=== PATIENT | female | born 1940 | race Caucasian/White ===

== ENCOUNTER 2018-03-11 12:59 | Emergency (ER) | payer MEDICARE, OTHER ==
[~2018-03-11] VITALS: Ht 162.6 cm; Wt 70.8 kg
[~2018-03-11 12:59] MED LIST: LEVO125T7; LOSA100T30
[2018-03-11 14:55] LABS: Basophils # (auto) 0 uL; Basophils % (auto) 0.4 % (0.0-2.0); Eosinophils # (auto) 0.1 uL; Eosinophils % (auto) 0.5 % (0.0-7.0); Hematocrit 39.1 % (36.0-46.0); Hemoglobin 13.1 g/dL (12.2-16.2); Lymphocytes # (auto) 3.4 uL; Mean Corpuscular Hemoglobin 29.5 pg (28.0-32.0); Mean Corpuscular Hgb Conc. 33.5 g/dL (32.0-36.0); Mean Corpuscular Volume 88.1 fL (80.0-100.0); Monocytes # (auto) 0.6 uL; Monocytes % (auto) 5.1 % (0.0-12.0); Neutrophils # (auto) 7.7 uL; Nucleated Red Blood Cells % 0.1 %; Platelet Count (auto) 251 10^3/uL (140-450); Red Blood Cells 4.44 10^6/uL (4.0-5.20); Red Cell Distribution Width 13.9 % (11.8-14.3); White Blood Cell 11.8 10^3/uL (4.4-10.8)
[2018-03-11 15:22] LABS: Alanine Aminotransferase 26 U/L (13-56); Albumin 4.2 g/dL (3.4-5.0); Alkaline Phosphatase 72 U/L (45-117); Anion Gap 12 (5-15); Aspartate Aminotransferase 15 U/L (15-37); BUN/Creatinine Ratio 22.4; Bilirubin, Total 0.4 mg/dL (0.2-1.0); Blood Urea Nitrogen 11 mg/dL (7-18); Carbon Dioxide 25 mmol/L (21-32); Chloride 98 mmol/L (98-107); GFR African American 158 mL/min; GFR Non-African American 131 mL/min; Glucose 102 mg/dL (74-106); Magnesium 2.4 mg/dL (1.6-2.6); Potassium 3.6 mmol/L (3.5-5.1); Sodium 135 mmol/L (136-145); Total Protein 7.9 g/dL (6.4-8.2)
[2018-03-11 17:11] LABS: Urine Bacteria NONE SEEN /hpf (None Seen); Urine Blood Negative /uL (Negative); Urine Mucus FEW (None Seen); Urine Specific Gravity 1.015 (1.001-1.035); Urine WBC 6 /hpf (0 - 5)
[2018-03-11 19:33] VITALS: BP 144/70
== END 2018-03-11 19:49 | disposition home or self-care (01) ==
LOC: MERGE 12:59 → ER 12:59
DX: J44.9 Chronic obstructive pulmonary disease, unspecified (principal); R00.2 Palpitations; E78.5 Hyperlipidemia, unspecified; I10 Essential (primary) hypertension; Z87.442 Personal history of urinary calculi; E07.9 Disorder of thyroid, unspecified
CPT/HCPCS: 36415; 71046; 80053; 81001; 83735; 83880; 84484; 85025; 93005

== ENCOUNTER → 2018-04-11 | Outpatient (CLI) | payer MEDICARE, OTHER ==
[2018-04-11 08:52] LABS: Free T3 2.36 pg/mL (2.3-4.2); Free T4 (Free Thyroxine) 1.07 ng/dL (0.89-1.76)
[2018-04-11 08:53] LABS: T3 Total 0.65 ng/mL (0.60-1.81)
== END | disposition home or self-care (01) ==
LOC: LAB 07:44
PROVIDERS: ATTEND Internal Medicine Cardiovascular Disease
DX: E11.65 Type 2 diabetes mellitus with hyperglycemia (principal); E78.5 Hyperlipidemia, unspecified; R00.2 Palpitations; E03.9 Hypothyroidism, unspecified; R07.89 Other chest pain; I10 Essential (primary) hypertension
CPT/HCPCS: 36415; 84439; 84443; 84480; 84481

== ENCOUNTER → 2018-04-13 | Outpatient (CLI) | payer MEDICARE, OTHER | END | disposition home or self-care (01) | LOC: XYW 08:37 | PROVIDERS: ATTEND Internal Medicine Cardiovascular Disease | DX: I10 Essential (primary) hypertension (principal); E03.9 Hypothyroidism, unspecified; E78.5 Hyperlipidemia, unspecified; J44.9 Chronic obstructive pulmonary disease, unspecified; E11.9 Type 2 diabetes mellitus without complications | CPT/HCPCS: 93306 ==

== ENCOUNTER → 2018-07-01 | Outpatient (CLI) | payer MEDICARE, OTHER ==
[~2018-07-01] MED LIST changes: +ALBUTEROL SULF 2.5 MG/0.5ML(0.5%) NEB SOLN ONE
== END | disposition home or self-care (01) ==
LOC: RT 08:36
PROVIDERS: ATTEND Internal Medicine Pulmonary Disease
DX: J44.9 Chronic obstructive pulmonary disease, unspecified (principal); I10 Essential (primary) hypertension; E03.9 Hypothyroidism, unspecified
CPT/HCPCS: 94060

== ENCOUNTER → 2018-08-15 | Outpatient (CLI) | payer MEDICARE, OTHER ==
[~2018-08-15] MED LIST changes: -ALBUTEROL SULF 2.5 MG/0.5ML(0.5%) NEB SOLN ONE
[2018-08-15 08:25] LABS: Cholesterol 188 mg/dL (< 200)
[2018-08-15 08:29] LABS: HDL Cholesterol 63 mg/dL (40-59); LDL Cholesterol 98 mg/dL (< 100); Triglycerides 206 mg/dL (< 150)
== END | disposition home or self-care (01) ==
LOC: LAB 07:41
PROVIDERS: ATTEND Internal Medicine Cardiovascular Disease
DX: E05.90 Thyrotoxicosis, unspecified without thyrotoxic crisis or storm (principal); E78.5 Hyperlipidemia, unspecified; I10 Essential (primary) hypertension
CPT/HCPCS: 36415; 80061; 84443

== ENCOUNTER → 2019-04-21 | Outpatient (CLI) | payer MEDICARE, OTHER ==
[2019-04-21 08:57] LABS: Basophils # (auto) 0 uL; Basophils % (auto) 0.3 % (0.0-2.0); Eosinophils # (auto) 0.1 uL; Eosinophils % (auto) 1.1 % (0.0-7.0); Hemoglobin 13.4 g/dL (12.2-16.2); Lymphocytes # (auto) 2.8 uL; Lymphocytes % (auto) 32.8 % (10.0-50.0); Mean Corpuscular Hemoglobin 29.4 pg (28.0-32.0); Mean Corpuscular Hgb Conc. 33.4 g/dL (32.0-36.0); Mean Corpuscular Volume 87.8 fL (80.0-100.0); Monocytes # (auto) 0.6 uL; Monocytes % (auto) 6.8 % (0.0-12.0); Nucleated Red Blood Cells % 0.1 %; Platelet Count (auto) 265 10^3/uL (140-450); Red Blood Cells 4.56 10^6/uL (4.0-5.20); Red Cell Distribution Width 13.5 % (11.8-14.3); White Blood Cell 8.4 10^3/uL (4.4-10.8)
[2019-04-21 09:13] LABS: BUN/Creatinine Ratio 24.5; Bilirubin, Total 0.6 mg/dL (0.2-1.0); Calcium 9.4 mg/dL (8.5-10.1); Total Protein 7.7 g/dL (6.4-8.2)
[2019-04-21 09:44] LABS: Potassium 2.9 mmol/L (3.5-5.1)
== END | disposition home or self-care (01) ==
LOC: LAB 08:04
PROVIDERS: ATTEND Physician Assistant
DX: J44.9 Chronic obstructive pulmonary disease, unspecified (principal); E03.9 Hypothyroidism, unspecified; E78.5 Hyperlipidemia, unspecified; I10 Essential (primary) hypertension
CPT/HCPCS: 36415; 80053; 80061; 84443; 85025

== ENCOUNTER → 2019-04-24 | Outpatient (CLI) | payer MEDICARE, OTHER | END | disposition home or self-care (01) | LOC: LAB 10:17 | PROVIDERS: ATTEND Physician Assistant | DX: E78.5 Hyperlipidemia, unspecified (principal); I10 Essential (primary) hypertension; J44.9 Chronic obstructive pulmonary disease, unspecified; E03.9 Hypothyroidism, unspecified | CPT/HCPCS: 82274 ==

== ENCOUNTER → 2019-06-16 | Outpatient (CLI) | payer MEDICARE, OTHER ==
[2019-06-16 12:51] LABS: Potassium 3.6 mmol/L (3.5-5.1)
[2019-06-16 13:03] LABS: BUN/Creatinine Ratio 32.7; Bilirubin, Total 0.7 mg/dL (0.2-1.0); Calcium 9.4 mg/dL (8.5-10.1); Total Protein 8.1 g/dL (6.4-8.2)
== END | disposition home or self-care (01) ==
LOC: LAB 12:04
PROVIDERS: ATTEND Internal Medicine
DX: E78.2 Mixed hyperlipidemia (principal); E11.65 Type 2 diabetes mellitus with hyperglycemia
CPT/HCPCS: 36415; 80053

== ENCOUNTER → 2019-08-09 | Outpatient (CLI) | payer MEDICARE, OTHER ==
[2019-08-09 11:30] LABS: Free T3 2.6 pg/mL (2.3-4.2)
[2019-08-09 11:46] LABS: Free T4 (Free Thyroxine) 1.39 ng/dL (0.89-1.76)
== END | disposition home or self-care (01) ==
LOC: LAB 09:21
PROVIDERS: ATTEND Internal Medicine
DX: E03.9 Hypothyroidism, unspecified (principal)
CPT/HCPCS: 36415; 84439; 84443; 84481

== ENCOUNTER → 2019-09-04 | Outpatient (CLI) | payer MEDICARE, OTHER | END | disposition home or self-care (01) | LOC: LAB 09:48 | PROVIDERS: ATTEND Internal Medicine | DX: Z01.812 Encounter for preprocedural laboratory examination (principal); I10 Essential (primary) hypertension; E78.5 Hyperlipidemia, unspecified; E03.9 Hypothyroidism, unspecified; Z98.890 Other specified postprocedural states; Z87.891 Personal history of nicotine dependence; Z88.6 Allergy status to analgesic agent; Z88.5 Allergy status to narcotic agent; Z88.8 Allergy status to other drugs, medicaments and biological substances; Z87.442 Personal history of urinary calculi | CPT/HCPCS: 36415; 82565; 84520 ==

== ENCOUNTER → 2019-09-25 | Outpatient (CLI) | payer MEDICARE, OTHER ==
[2019-09-25 10:18] LABS: Free T3 3.01 pg/mL (2.3-4.2); Free T4 (Free Thyroxine) 1.22 ng/dL (0.89-1.76); T3 Total 1.04 ng/mL (0.60-1.81)
== END | disposition home or self-care (01) ==
LOC: LAB 08:57
PROVIDERS: ATTEND Internal Medicine
DX: E03.9 Hypothyroidism, unspecified (principal); E11.65 Type 2 diabetes mellitus with hyperglycemia; E78.5 Hyperlipidemia, unspecified; E87.6 Hypokalemia
CPT/HCPCS: 36415; 83036; 84439; 84443; 84480; 84481

== ENCOUNTER 2019-11-04 15:50 | Emergency (ER) | payer MEDICARE, OTHER ==
[~2019-11-04] VITALS: Ht 162.6 cm; Wt 70.3 kg
[2019-11-04 16:03] VITALS: BP 158/73
[2019-11-04] MEDS ORDERED: FLUORESCEIN SOD 1 MG TEST STRIP OP ONE (17:45)
[2019-11-04] MEDS ORDERED: TETRACAINE HCL 0.5% OPTH(EYE) SOLN 4ML LEFTEYE ONE (17:45)
== END 2019-11-04 18:16 | disposition home or self-care (01) ==
LOC: ER 16:03
DX: T15.11XA Foreign body in conjunctival sac, right eye, initial encounter (principal); I10 Essential (primary) hypertension; E78.00 Pure hypercholesterolemia, unspecified; Z87.891 Personal history of nicotine dependence; Z88.5 Allergy status to narcotic agent; Z88.2 Allergy status to sulfonamides; Z88.8 Allergy status to other drugs, medicaments and biological substances; Z79.899 Other long term (current) drug therapy; X58.XXXA Exposure to other specified factors, initial encounter; Y93.89 Activity, other specified; Y92.89 Other specified places as the place of occurrence of the external cause; Y99.8 Other external cause status

== ENCOUNTER → 2019-12-04 | Outpatient (CLI) | payer MEDICARE, OTHER ==
[2019-12-04 09:03] LABS: Urine WBC None Seen /hpf (0 - 5)
[2019-12-04 09:16] LABS: Basophils # (auto) 0 uL; Basophils % (auto) 0.5 % (0.0-2.0); Eosinophils # (auto) 0.1 uL; Eosinophils % (auto) 0.9 % (0.0-7.0); Hematocrit 39.9 % (36.0-46.0); Hemoglobin 13.5 g/dL (12.2-16.2); Lymphocytes # (auto) 2.4 uL; Lymphocytes % (auto) 29.7 % (10.0-50.0); Mean Corpuscular Volume 88.3 fL (80.0-100.0); Monocytes # (auto) 0.4 uL; Monocytes % (auto) 5.3 % (0.0-12.0); Neutrophils # (auto) 5.1 uL; Neutrophils % (auto) 63.6 % (37.0-80.0); Platelet Count (auto) 271 10^3/uL (140-450); Red Blood Cells 4.52 10^6/uL (4.0-5.20)
[2019-12-04 09:24] LABS: Urine Bacteria NONE SEEN /hpf (None Seen); Urine Blood Negative /uL (Negative); Urine Specific Gravity 1.011 (1.001-1.035)
[2019-12-04 09:42] LABS: Calcium 9.2 mg/dL (8.5-10.1); Potassium 3.3 mmol/L (3.5-5.1)
[2019-12-04 09:48] LABS: Bilirubin, Total 0.6 mg/dL (0.2-1.0); Total Protein 7.8 g/dL (6.4-8.2)
[2019-12-04 10:09] LABS: Free T4 (Free Thyroxine) 1.51 ng/dL (0.89-1.76)
[2019-12-04 10:10] LABS: T3 Total 1.02 ng/mL (0.60-1.81)
== END | disposition home or self-care (01) ==
LOC: LAB 08:46
PROVIDERS: ATTEND Physician Assistant
DX: E11.65 Type 2 diabetes mellitus with hyperglycemia (principal); I10 Essential (primary) hypertension; E03.9 Hypothyroidism, unspecified; R79.89 Other specified abnormal findings of blood chemistry
CPT/HCPCS: 36415; 80053; 80061; 81001; 83036; 84439; 84443; 84480; 85025

== ENCOUNTER → 2020-02-26 | Outpatient (CLI) | payer MEDICARE, OTHER ==
[2020-02-26 15:14] LABS: Albumin 4.1 g/dL (3.4-5.0); Calcium 9.6 mg/dL (8.5-10.1); Potassium 3.9 mmol/L (3.5-5.1)
[2020-02-26 15:19] LABS: BUN/Creatinine Ratio 29.6; Bilirubin, Total 0.5 mg/dL (0.2-1.0); Total Protein 8.2 g/dL (6.4-8.2)
== END | disposition home or self-care (01) ==
LOC: LAB 14:12
PROVIDERS: ATTEND Internal Medicine
DX: I10 Essential (primary) hypertension (principal)
CPT/HCPCS: 36415; 80053

== ENCOUNTER → 2020-04-24 | Outpatient (CLI) | payer MEDICARE, OTHER | END | disposition home or self-care (01) | LOC: XYW 08:37 | PROVIDERS: ATTEND Internal Medicine | DX: I07.1 Rheumatic tricuspid insufficiency (principal); I42.9 Cardiomyopathy, unspecified; R07.9 Chest pain, unspecified | CPT/HCPCS: 93306 ==

== ENCOUNTER → 2020-05-07 | Outpatient (CLI) | payer MEDICARE, OTHER ==
[~2020-05-07] VITALS: Ht 162.6 cm; Wt 68.0 kg
[~2020-05-07] MED LIST changes: +ADENOSINE 57 MG in GIVE UN-DILUTED 0 ML IV STA
[2020-05-07 10:14] VITALS: BP 154/55
== END | disposition home or self-care (01) ==
LOC: XY 08:42
PROVIDERS: ATTEND Internal Medicine
DX: R07.9 Chest pain, unspecified (principal)
CPT/HCPCS: 78452; 93017; A9500; J0153

== ENCOUNTER → 2020-11-18 | Outpatient (CLI) | payer MEDICARE, OTHER ==
[~2020-11-18] MED LIST changes: -ADENOSINE 57 MG in GIVE UN-DILUTED 0 ML IV STA
[2020-11-18 16:25] LABS: Basophils # (auto) 0.1 10 ^3/uL (0-0.2); Basophils % (auto) 0.6 % (0.0-2.0); Eosinophils # (auto) 0.1 10 ^3/uL (0-0.8); Eosinophils % (auto) 0.6 % (0.0-7.0); Hematocrit 37.6 % (36.0-46.0); Hemoglobin 12.7 g/dL (12.2-16.2); Lymphocytes # (auto) 3.2 10 ^3/uL (0.4-5.4); Lymphocytes % (auto) 30.9 % (10.0-50.0); Mean Corpuscular Hemoglobin 29.5 pg (28.0-32.0); Mean Corpuscular Hgb Conc. 33.8 g/dL (32.0-36.0); Mean Corpuscular Volume 87.3 fL (80.0-100.0); Monocytes # (auto) 0.5 10 ^3/uL (0-1.3); Monocytes % (auto) 5.2 % (0.0-12.0); Neutrophils # (auto) 6.5 10 ^3/uL (1.6-8.6); Neutrophils % (auto) 62.7 % (37.0-80.0); Platelet Count (auto) 295 10^3/uL (140-450); White Blood Cell 10.3 10^3/uL (4.4-10.8)
[2020-11-18 16:42] LABS: INR 0.99 (0.9-1.15); Partial Thromboplastin Time 25.7 sec (23.0-31.2)
[2020-11-18 16:46] LABS: Albumin 3.9 g/dL (3.4-5.0); Calcium 9.7 mg/dL (8.5-10.1); Potassium 3.6 mmol/L (3.5-5.1)
[2020-11-18 16:51] LABS: BUN/Creatinine Ratio 25.9; Bilirubin, Total 0.3 mg/dL (0.2-1.0); Total Protein 8.2 g/dL (6.4-8.2)
[2020-11-19 10:17] LABS: Urine Blood Negative /uL (Negative); Urine Specific Gravity 1.016 (1.001-1.035)
== END | disposition home or self-care (01) ==
LOC: LAB 15:47
PROVIDERS: ATTEND Specialist
DX: Z01.812 Encounter for preprocedural laboratory examination (principal); H25.11 Age-related nuclear cataract, right eye; D68.9 Coagulation defect, unspecified; Z79.01 Long term (current) use of anticoagulants
CPT/HCPCS: 36415; 80053; 81003; 85025; 85610; 85730

== ENCOUNTER → 2021-05-23 | Outpatient (CLI) | payer MEDICARE, OTHER ==
[2021-05-23 09:35] LABS: Basophils # (auto) 0.1 10 ^3/uL (0-0.2); Basophils % (auto) 0.5 % (0.0-2.0); Eosinophils # (auto) 0.2 10 ^3/uL (0-0.8); Eosinophils % (auto) 1.5 % (0.0-7.0); Hematocrit 35.8 % (36.0-46.0); Hemoglobin 12.7 g/dL (12.2-16.2); Lymphocytes # (auto) 3.4 10 ^3/uL (0.4-5.4); Lymphocytes % (auto) 33.9 % (10.0-50.0); Mean Corpuscular Hemoglobin 30.2 pg (28.0-32.0); Mean Corpuscular Hgb Conc. 35.5 g/dL (32.0-36.0); Mean Corpuscular Volume 85.1 fL (80.0-100.0); Monocytes # (auto) 0.7 10 ^3/uL (0-1.3); Monocytes % (auto) 7.2 % (0.0-12.0); Neutrophils # (auto) 5.8 10 ^3/uL (1.6-8.6); Neutrophils % (auto) 56.9 % (37.0-80.0); Nucleated Red Blood Cells % 0.1 %; Red Cell Distribution Width 13.5 % (11.8-14.3); White Blood Cell 10.1 10^3/uL (4.4-10.8)
[2021-05-23 10:13] LABS: Albumin 3.8 g/dL (3.4-5.0); Calcium 9.3 mg/dL (8.5-10.1); Potassium 3.5 mmol/L (3.5-5.1)
[2021-05-23 10:18] LABS: Bilirubin, Total 0.5 mg/dL (0.2-1.0); Total Protein 7.6 g/dL (6.4-8.2)
== END | disposition home or self-care (01) ==
LOC: LAB 09:15
PROVIDERS: ATTEND Nurse Practitioner Family
DX: I10 Essential (primary) hypertension (principal); E78.5 Hyperlipidemia, unspecified; I42.9 Cardiomyopathy, unspecified; E03.9 Hypothyroidism, unspecified; E11.65 Type 2 diabetes mellitus with hyperglycemia
CPT/HCPCS: 36415; 80053; 80061; 83036; 84443; 85025

== ENCOUNTER 2022-04-01 16:59 | Inpatient (IN) | payer MEDICARE, OTHER ==
[~2022-04-01] VITALS: Ht 162.6 cm; Wt 64.2 kg
[2022-04-01 18:23] LABS: Basophils # (auto) 0 10 ^3/uL (0-0.2); Basophils % (auto) 0.1 % (0.0-2.0); Eosinophils # (auto) 0 10 ^3/uL (0-0.8); Hematocrit 35.4 % (36.0-46.0); Hemoglobin 12.6 g/dL (12.2-16.2); Lymphocytes # (auto) 1.4 10 ^3/uL (0.4-5.4); Lymphocytes % (auto) 8.2 % (10.0-50.0); Mean Corpuscular Hemoglobin 30.1 pg (28.0-32.0); Mean Corpuscular Hgb Conc. 35.5 g/dL (32.0-36.0); Mean Corpuscular Volume 84.7 fL (80.0-100.0); Monocytes # (auto) 0.9 10 ^3/uL (0-1.3); Monocytes % (auto) 5.1 % (0.0-12.0); Neutrophils # (auto) 14.4 10 ^3/uL (1.6-8.6); Neutrophils % (auto) 86.6 % (37.0-80.0); Nucleated Red Blood Cells % 0.1 %; Red Blood Cells 4.18 10^6/uL (4.0-5.20); White Blood Cell 16.7 10^3/uL (4.4-10.8)
[2022-04-01 18:30] LABS: Albumin 3.7 g/dL (3.4-5.0); Magnesium 2.3 mg/dL (1.6-2.6)
[2022-04-01 18:33] LABS: BUN/Creatinine Ratio 28.6; Total Protein 7.2 g/dL (6.4-8.2)
[2022-04-01 18:34] LABS: Lactic Acid w/Reflex 2.4 mmol/L (0.4-2.0)
[2022-04-01 18:59] LABS: Potassium 2.8 mmol/L (3.5-5.1)
[2022-04-01] MEDS ORDERED: SODIUM CHLORIDE 0.9% 1,000 ML IV ONE (19:00)
[2022-04-01] MEDS ORDERED: cefTRIAXone 1GM/50ML D5W 50 ML IV ONE (19:00)
[2022-04-01] MEDS ORDERED: POTASSIUM CHL 20 Meq TABLET PO ONE (21:15)
[2022-04-01] MEDS ORDERED: ONDANSETRON HCL 4 MG/2 ML VIAL IV PRN (21:30)
[2022-04-01] MEDS: ATORVASTATIN 20 MG TAB PO SCH (22:33)
[2022-04-02 04:38] VITALS: BP 127/58
[2022-04-02 05:24] LABS: Basophils # (auto) 0 10 ^3/uL (0-0.2); Basophils % (auto) 0.2 % (0.0-2.0); Eosinophils # (auto) 0.1 10 ^3/uL (0-0.8); Eosinophils % (auto) 0.5 % (0.0-7.0); Hematocrit 32.3 % (36.0-46.0); Hemoglobin 11.2 g/dL (12.2-16.2); Lymphocytes # (auto) 2.4 10 ^3/uL (0.4-5.4); Lymphocytes % (auto) 21.6 % (10.0-50.0); Mean Corpuscular Hemoglobin 29.8 pg (28.0-32.0); Mean Corpuscular Hgb Conc. 34.5 g/dL (32.0-36.0); Mean Corpuscular Volume 86.4 fL (80.0-100.0); Monocytes # (auto) 0.8 10 ^3/uL (0-1.3); Monocytes % (auto) 7.3 % (0.0-12.0); Neutrophils # (auto) 7.9 10 ^3/uL (1.6-8.6); Neutrophils % (auto) 70.4 % (37.0-80.0); Nucleated Red Blood Cells % 0.1 %; Red Blood Cells 3.74 10^6/uL (4.0-5.20); Red Cell Distribution Width 12.8 % (11.8-14.3); White Blood Cell 11.2 10^3/uL (4.4-10.8)
[2022-04-02 05:39] LABS: Albumin 3.4 g/dL (3.4-5.0); BUN/Creatinine Ratio 29.3; Calcium 8.8 mg/dL (8.5-10.1); Potassium 3.5 mmol/L (3.5-5.1)
[2022-04-02 05:45] LABS: Bilirubin, Total 0.7 mg/dL (0.2-1.0); Total Protein 6.2 g/dL (6.4-8.2)
[2022-04-02] MEDS: LEVOTHYROXINE SODIUM 50 MCG TAB PO SCH (06:42)
[2022-04-02 09:30] VITALS: BP 137/57
[2022-04-02] MEDS: PANTOPRAZOLE 40 MG TAB PO SCH (09:31)
[2022-04-02] MEDS: cefTRIAXone 1GM/50ML D5W 50 ML IV SCH (09:31)
[2022-04-02] MEDS ORDERED: ENOXAPARIN SOD 40 MG/0.4 ML SYRINGE SC SCH (10:00)
[2022-04-02] MEDS: SODIUM CHLORIDE 0.9% 1,000 ML IV SCH (10:15)
[2022-04-02] MEDS ORDERED: POTASSIUM CHL 20 Meq TABLET PO ONE (14:15)
[2022-04-02] MEDS ORDERED: AMIODARONE HCL 200 MG TAB PO ONE (14:15)
[2022-04-02] MEDS ORDERED: METOPROLOL TARTRATE 25 MG TAB PO ONE (14:15)
[2022-04-02 19:05] LABS: Urine Bacteria NONE SEEN /hpf (None Seen); Urine Blood Negative /uL (Negative); Urine WBC 10 /hpf (0 - 5)
[2022-04-02 22:03] VITALS: BP 152/70
[2022-04-02] MEDS: METOPROLOL TARTRATE 25 MG TAB PO SCH (22:45)
[2022-04-02] MEDS: ENOXAPARIN SOD 60 MG/0.6 ML SYRINGE SC SCH (22:45)
[2022-04-02] MEDS: ATORVASTATIN 20 MG TAB PO SCH (22:45)
[2022-04-02] MEDS: AMIODARONE HCL 200 MG TAB PO SCH (22:45)
[2022-04-03] MEDS: SODIUM CHLORIDE 0.9% 1,000 ML IV SCH ×2 (03:24→22:17)
[2022-04-03 05:16] VITALS: BP 142/79
[2022-04-03] MEDS: LEVOTHYROXINE SODIUM 50 MCG TAB PO SCH (07:47)
[2022-04-03 09:00] VITALS: BP 133/76
[2022-04-03] MEDS: cefTRIAXone 1GM/50ML D5W 50 ML IV SCH (09:50)
[2022-04-03] MEDS: PANTOPRAZOLE 40 MG TAB PO SCH (09:51)
[2022-04-03] MEDS: AMIODARONE HCL 200 MG TAB PO SCH ×2 (09:51→22:14)
[2022-04-03] MEDS: METOPROLOL TARTRATE 25 MG TAB PO SCH ×2 (09:51→22:12)
[2022-04-03] MEDS: ENOXAPARIN SOD 60 MG/0.6 ML SYRINGE SC SCH ×2 (09:52→22:11)
[2022-04-03 13:00] VITALS: BP 146/75
[2022-04-03 17:00] VITALS: BP 138/68
[2022-04-03 22:00] VITALS: BP 137/74
[2022-04-03] MEDS: ATORVASTATIN 20 MG TAB PO SCH (22:11)
[2022-04-04] MEDS ORDERED: TEMAZEPAM 15 MG CAP PO ONE ×2 (01:30→21:45)
[2022-04-04 05:12] VITALS: BP 92/48
[2022-04-04] MEDS: LEVOTHYROXINE SODIUM 50 MCG TAB PO SCH (06:14)
[2022-04-04 06:16] VITALS: BP 121/66
[2022-04-04 08:00] VITALS: BP 124/73
[2022-04-04] MEDS: cefTRIAXone 1GM/50ML D5W 50 ML IV SCH (11:19)
[2022-04-04] MEDS: PANTOPRAZOLE 40 MG TAB PO SCH (11:20)
[2022-04-04] MEDS: AMIODARONE HCL 200 MG TAB PO SCH ×2 (11:20→21:28)
[2022-04-04] MEDS: METOPROLOL TARTRATE 25 MG TAB PO SCH ×2 (11:20→21:27)
[2022-04-04] MEDS: ENOXAPARIN SOD 60 MG/0.6 ML SYRINGE SC SCH (11:21)
[2022-04-04 12:00] VITALS: BP 135/68
[2022-04-04] MEDS ORDERED: APIX5TAB PO (12:06)
[2022-04-04] MEDS ORDERED: AMIO200T33 PO (12:08)
[2022-04-04] MEDS ORDERED: MET25T PO (12:08)
[2022-04-04 12:57] LABS: Basophils # (auto) 0.2 10 ^3/uL (0-0.2); Basophils % (auto) 1.5 % (0.0-2.0); Eosinophils # (auto) 0.1 10 ^3/uL (0-0.8); Eosinophils % (auto) 0.9 % (0.0-7.0); Hematocrit 35.3 % (36.0-46.0); Hemoglobin 12.2 g/dL (12.2-16.2); Lymphocytes # (auto) 2.7 10 ^3/uL (0.4-5.4); Lymphocytes % (auto) 25.1 % (10.0-50.0); Mean Corpuscular Hemoglobin 30.1 pg (28.0-32.0); Mean Corpuscular Hgb Conc. 34.6 g/dL (32.0-36.0); Monocytes # (auto) 0.6 10 ^3/uL (0-1.3); Monocytes % (auto) 5.7 % (0.0-12.0); Neutrophils # (auto) 7.1 10 ^3/uL (1.6-8.6); Neutrophils % (auto) 66.8 % (37.0-80.0); Nucleated Red Blood Cells % 0.1 %; Red Blood Cells 4.06 10^6/uL (4.0-5.20); White Blood Cell 10.6 10^3/uL (4.4-10.8)
[2022-04-04 13:09] LABS: BUN/Creatinine Ratio 12.3; Calcium 8.6 mg/dL (8.5-10.1)
[2022-04-04 16:00] VITALS: BP 126/55
[2022-04-04] MEDS: APIXABAN 5 MG TAB PO SCH (21:26)
[2022-04-04] MEDS: ATORVASTATIN 20 MG TAB PO SCH (21:27)
[2022-04-04 22:00] VITALS: BP 124/85
[2022-04-05 05:00] VITALS: BP 110/65
[2022-04-05] MEDS: LEVOTHYROXINE SODIUM 50 MCG TAB PO SCH (06:46)
[2022-04-05 08:00] VITALS: BP 129/56
[2022-04-05] MEDS: cefTRIAXone 1GM/50ML D5W 50 ML IV SCH (09:36)
[2022-04-05] MEDS: AMIODARONE HCL 200 MG TAB PO SCH ×2 (09:37→22:33)
[2022-04-05] MEDS: APIXABAN 5 MG TAB PO SCH ×2 (09:37→22:34)
[2022-04-05] MEDS: METOPROLOL TARTRATE 25 MG TAB PO SCH ×2 (09:38→22:34)
[2022-04-05] MEDS: PANTOPRAZOLE 40 MG TAB PO SCH (09:38)
[2022-04-05 12:00] VITALS: BP 132/66
[2022-04-05 16:00] VITALS: BP 142/72
[2022-04-05 22:00] VITALS: BP 143/84
[2022-04-05] MEDS ORDERED: TEMAZEPAM 15 MG CAP PO PRN (22:00)
[2022-04-05] MEDS: ATORVASTATIN 20 MG TAB PO SCH (22:32)
[2022-04-06 04:00] VITALS: BP 118/60
[2022-04-06] MEDS: LEVOTHYROXINE SODIUM 50 MCG TAB PO SCH (06:39)
[2022-04-06 09:00] VITALS: BP 157/82
[2022-04-06] MEDS: cefTRIAXone 1GM/50ML D5W 50 ML IV SCH (09:05)
[2022-04-06] MEDS: PANTOPRAZOLE 40 MG TAB PO SCH (09:06)
[2022-04-06] MEDS: AMIODARONE HCL 200 MG TAB PO SCH (09:06)
[2022-04-06] MEDS: APIXABAN 5 MG TAB PO SCH (09:06)
[2022-04-06] MEDS: METOPROLOL TARTRATE 25 MG TAB PO SCH (09:10)
[2022-04-06 13:00] VITALS: BP 157/79
[2022-04-06 17:00] VITALS: BP 143/74
== END 2022-04-06 19:04 | DRG 641 ==
LOC: ER 16:59 → EDUNIT# 16:59 → EDBD 16:59 → OVERFLOW 21:23 → WEST WING 23:38 → TELE-WESTW 04-02 22:00
PROVIDERS: ADMIT Nurse Practitioner; ATTEND Internal Medicine Pulmonary Disease
DX: R62.7 Adult failure to thrive (principal); E87.1 Hypo-osmolality and hyponatremia; M62.82 Rhabdomyolysis; R65.10 Systemic inflammatory response syndrome (SIRS) of non-infectious origin without acute organ dysfunction; E87.2 Acidosis; N39.0 Urinary tract infection, site not specified; G20 Parkinson's disease; Z68.23 Body mass index [BMI] 23.0-23.9, adult; I48.0 Paroxysmal atrial fibrillation; E86.0 Dehydration; E11.42 Type 2 diabetes mellitus with diabetic polyneuropathy; R79.89 Other specified abnormal findings of blood chemistry; Z20.822 Contact with and (suspected) exposure to COVID-19; E03.9 Hypothyroidism, unspecified; D72.829 Elevated white blood cell count, unspecified; S40.022A Contusion of left upper arm, initial encounter; W18.39XA Other fall on same level, initial encounter; E78.5 Hyperlipidemia, unspecified; E87.6 Hypokalemia; I10 Essential (primary) hypertension; Z82.49 Family history of ischemic heart disease and other diseases of the circulatory system; Z87.442 Personal history of urinary calculi; Z87.891 Personal history of nicotine dependence; Z88.1 Allergy status to other antibiotic agents; Z88.5 Allergy status to narcotic agent; Z88.2 Allergy status to sulfonamides; Y93.89 Activity, other specified; Y92.89 Other specified places as the place of occurrence of the external cause; Y99.8 Other external cause status
CPT/HCPCS: 36415; 70450; 71045; 72125; 73030; 73070; 73200; 80048; 80053; 81001; 82550; 83036; 83605; 83735; 84443; 84484; 85025; 87040; 87086; 93005; 93306; 96365; 97116; 97163; 97530; 99291; G0378; J0696

== ENCOUNTER 2023-04-14 01:04 | Emergency (ER) | payer MEDICARE, OTHER ==
[~2023-04-14] VITALS: Ht 160 cm; Wt 64.0 kg
[~2023-04-14 01:04] MED LIST changes: +AMIO200T33 PO; +APIX5TAB PO; -LOSA100T30; +MET25T PO
[2023-04-14] MEDS ORDERED: PRED10TA PO (03:40)
[2023-04-14] MEDS ORDERED: cefTRIAXone SOD 1,000 MG VL IM ONE (03:45)
[2023-04-14] MEDS ORDERED: methylPREDNISolone SOD SUCC 125 MG/2 ML VL IV ONE (03:45)
[2023-04-14] MEDS ORDERED: TETANUS-DIPTH-ACEL PERTUSSIS 0.5ML SYR Tdap IM ONE (04:15)
[2023-04-14] MEDS ORDERED: SODIUM CHLORIDE 0.9% 1,000 ML IV ONE (04:15)
[2023-04-14] MEDS ORDERED: cefTRIAXone 1GM/50ML D5W 50 ML IV ONE (04:45)
[2023-04-14 05:01] VITALS: BP 115/46
== END 2023-04-14 05:20 | disposition home or self-care (01) ==
LOC: ER 01:04
DX: S40.861A Insect bite (nonvenomous) of right upper arm, initial encounter (principal); S80.862A Insect bite (nonvenomous), left lower leg, initial encounter; S80.861A Insect bite (nonvenomous), right lower leg, initial encounter; I48.91 Unspecified atrial fibrillation; E78.5 Hyperlipidemia, unspecified; I10 Essential (primary) hypertension; Z88.6 Allergy status to analgesic agent; Z88.2 Allergy status to sulfonamides; Z88.8 Allergy status to other drugs, medicaments and biological substances; Z79.899 Other long term (current) drug therapy; Z87.442 Personal history of urinary calculi; W57.XXXA Bitten or stung by nonvenomous insect and other nonvenomous arthropods, initial encounter; Y93.89 Activity, other specified; Y92.89 Other specified places as the place of occurrence of the external cause; Y99.8 Other external cause status
CPT/HCPCS: 90471; 90715; 96361; 96365; 96375; 99284; J0696; J2930; J7030

== ENCOUNTER 2023-06-06 14:42 | Inpatient (IN) | payer MEDICARE, OTHER ==
[~2023-06-06] VITALS: Ht 167.6 cm; Wt 68.5 kg
[~2023-06-06 14:42] MED LIST changes: +PRED10TA PO
[2023-06-06] MEDS ORDERED: HYDROmorphone HCL 2 MG/ML VL/or syr IV ONE (15:30)
[2023-06-06] MEDS ORDERED: METOCLOPRAMIDE HCL 5MG/ml INJ 2ml VIAL IV ONE (15:30)
[2023-06-06] MEDS ORDERED: SODIUM CHLORIDE 0.9% 1,000 ML IV ONE (19:30)
[2023-06-06 20:06] LABS: Basophils # (auto) 0 10 ^3/uL (0-0.2); Basophils % (auto) 0.2 % (0.0-2.0); Eosinophils # (auto) 0.1 10 ^3/uL (0-0.8); Eosinophils % (auto) 0.7 % (0.0-7.0); Hematocrit 35.8 % (36.0-46.0); Hemoglobin 12.6 g/dL (12.2-16.2); Lymphocytes # (auto) 1.9 10 ^3/uL (0.4-5.4); Lymphocytes % (auto) 14.1 % (10.0-50.0); Mean Corpuscular Hgb Conc. 35.2 g/dL (32.0-36.0); Mean Corpuscular Volume 85.2 fL (80.0-100.0); Monocytes # (auto) 0.8 10 ^3/uL (0-1.3); Monocytes % (auto) 6.2 % (0.0-12.0); Neutrophils # (auto) 10.4 10 ^3/uL (1.6-8.6); Neutrophils % (auto) 78.8 % (37.0-80.0); Red Blood Cells 4.21 10^6/uL (4.0-5.20); White Blood Cell 13.2 10^3/uL (4.4-10.8)
[2023-06-06 20:24] LABS: Albumin 3.8 g/dL (3.4-5.0); Calcium 9.4 mg/dL (8.5-10.1); Potassium 3.7 mmol/L (3.5-5.1)
[2023-06-06 20:27] LABS: BUN/Creatinine Ratio 30.4 (10.0-20.0); Bilirubin, Total 0.8 mg/dL (0.2-1.0)
[2023-06-06 22:10] VITALS: PULSE 79; RESP 93; O2SAT 93
[2023-06-07] MEDS: ONDANSETRON HCL 4 MG/2 ML VIAL IV PRN ×4 (00:21→23:00)
[2023-06-07] MEDS: MORPHINE SULFATE 4 MG/ML SYR/VIAL IV PRN ×2 (00:21→04:51)
[2023-06-07] MEDS ORDERED: MORPHINE SULFATE INJ 2 MG/ml SYRG IV PRN (05:15)
[2023-06-07] MEDS: SODIUM CHLORIDE 0.9% 1,000 ML IV SCH ×2 (05:15→17:56)
[2023-06-07 08:40] VITALS: PULSE 66; RESP 95; O2SAT 95
[2023-06-07] MEDS: LOSARTAN POTASSIUM 25 MG TAB PO SCH (09:39)
[2023-06-07] MEDS: METOPROLOL SUCCINATE XL 50 MG TAB PO SCH (09:39)
[2023-06-07] MEDS: ENOXAPARIN SOD 80 MG/0.8ML SYRINGE SC SCH ×2 (09:40→21:09)
[2023-06-07] MEDS: HYDROmorphone HCL 2 MG/ML VL/or syr IV PRN ×3 (12:53→23:01)
[2023-06-07 17:00] VITALS: BP 112/72; PULSE 74; RESP 16; TEMP 98; O2SAT 96
[2023-06-07 17:03] VITALS: BP 112/72; PULSE 74; RESP 16; TEMP 98.7; O2SAT 95
[2023-06-07 20:00] VITALS: PULSE 80
[2023-06-07] MEDS ORDERED: FLEET ENEMA(ADULT) 135 ML PR ONE (20:15)
[2023-06-07] MEDS: DOXYCYCLINE 100MG/250ML 250 ML IV SCH (21:09)
[2023-06-07] MEDS: ATORVASTATIN 20 MG TAB PO SCH (21:09)
[2023-06-07] MEDS: GABAPENTIN 300 MG CAP PO SCH (21:09)
[2023-06-07] MEDS: LACTULOSE 20Gm/30ML SOLN PO PRN (21:15)
[2023-06-07 22:00] VITALS: BP 129/52; PULSE 63; RESP 18; TEMP 98; O2SAT 94
[2023-06-08] VITALS (7 sets, daily range): BP systolic 130–159; BP diastolic 53–73; PULSE 6–94; RESP 16–17; TEMP 97.9–98.8; O2SAT 94–97
[2023-06-08 05:52] LABS: Basophils # (auto) 0 10 ^3/uL (0-0.2); Basophils % (auto) 0.3 % (0.0-2.0); Eosinophils # (auto) 0.3 10 ^3/uL (0-0.8); Eosinophils % (auto) 2.3 % (0.0-7.0); Hematocrit 34.2 % (36.0-46.0); Hemoglobin 11.8 g/dL (12.2-16.2); Lymphocytes # (auto) 2.6 10 ^3/uL (0.4-5.4); Lymphocytes % (auto) 19.8 % (10.0-50.0); Mean Corpuscular Hemoglobin 30.1 pg (28.0-32.0); Mean Corpuscular Hgb Conc. 34.4 g/dL (32.0-36.0); Mean Corpuscular Volume 87.6 fL (80.0-100.0); Monocytes % (auto) 7.3 % (0.0-12.0); Neutrophils # (auto) 9.4 10 ^3/uL (1.6-8.6); Neutrophils % (auto) 70.3 % (37.0-80.0); Nucleated Red Blood Cells % 0.1 %; Red Blood Cells 3.91 10^6/uL (4.0-5.20); Red Cell Distribution Width 13.2 % (11.8-14.3); White Blood Cell 13.3 10^3/uL (4.4-10.8)
[2023-06-08] MEDS: LEVOTHYROXINE SODIUM 88 MCG TAB PO SCH (06:12)
[2023-06-08 06:19] LABS: Albumin 2.8 g/dL (3.4-5.0); Potassium 3.4 mmol/L (3.5-5.1)
[2023-06-08 06:26] LABS: BUN/Creatinine Ratio 24.4 (10.0-20.0); Bilirubin, Total 0.6 mg/dL (0.2-1.0); Calcium 8.2 mg/dL (8.5-10.1); Total Protein 6.3 g/dL (6.4-8.2)
[2023-06-08] MEDS ORDERED: POTASSIUM EFFERVESENT TAB 25 MEQ PO ONE (07:00)
[2023-06-08] MEDS: SODIUM CHLORIDE 0.9% 1,000 ML IV SCH ×2 (08:22→20:31)
[2023-06-08] MEDS: DOXYCYCLINE 100MG/250ML 250 ML IV SCH ×2 (08:22→21:21)
[2023-06-08] MEDS: ONDANSETRON HCL 4 MG/2 ML VIAL IV PRN (08:23)
[2023-06-08] MEDS: HYDROmorphone HCL 2 MG/ML VL/or syr IV PRN ×2 (08:23→20:22)
[2023-06-08] MEDS: METOPROLOL SUCCINATE XL 50 MG TAB PO SCH (10:44)
[2023-06-08] MEDS: LOSARTAN POTASSIUM 25 MG TAB PO SCH (10:44)
[2023-06-08] MEDS: ENOXAPARIN SOD 80 MG/0.8ML SYRINGE SC SCH ×2 (10:44→21:21)
[2023-06-08] MEDS: GABAPENTIN 300 MG CAP PO SCH (21:21)
[2023-06-08] MEDS: ATORVASTATIN 20 MG TAB PO SCH (21:27)
[2023-06-09] MEDS ORDERED: LOSA100T13 PO (01:05)
[2023-06-09 05:00] VITALS: BP 119/53; PULSE 68; RESP 18; TEMP 98.3; O2SAT 93
[2023-06-09] MEDS: LEVOTHYROXINE SODIUM 88 MCG TAB PO SCH (06:14)
[2023-06-09] MEDS: DOXYCYCLINE 100MG/250ML 250 ML IV SCH ×2 (07:37→20:25)
[2023-06-09] MEDS: ONDANSETRON HCL 4 MG/2 ML VIAL IV PRN ×3 (07:56→21:23)
[2023-06-09] MEDS: HYDROmorphone HCL 2 MG/ML VL/or syr IV PRN ×3 (07:58→21:24)
[2023-06-09 08:00] VITALS: PULSE 62
[2023-06-09 09:00] VITALS: BP 139/55; PULSE 74; RESP 18; TEMP 97.9; O2SAT 93
[2023-06-09 09:21] LABS: Basophils # (auto) 0 10 ^3/uL (0-0.2); Basophils % (auto) 0.4 % (0.0-2.0); Eosinophils # (auto) 0.2 10 ^3/uL (0-0.8); Eosinophils % (auto) 2.4 % (0.0-7.0); Hematocrit 32.8 % (36.0-46.0); Hemoglobin 11.4 g/dL (12.2-16.2); Lymphocytes # (auto) 2.4 10 ^3/uL (0.4-5.4); Lymphocytes % (auto) 24.2 % (10.0-50.0); Mean Corpuscular Hemoglobin 30.2 pg (28.0-32.0); Mean Corpuscular Hgb Conc. 34.6 g/dL (32.0-36.0); Mean Corpuscular Volume 87.4 fL (80.0-100.0); Monocytes # (auto) 0.6 10 ^3/uL (0-1.3); Monocytes % (auto) 6.4 % (0.0-12.0); Neutrophils # (auto) 6.5 10 ^3/uL (1.6-8.6); Neutrophils % (auto) 66.6 % (37.0-80.0); Nucleated Red Blood Cells % 0.1 %; Red Blood Cells 3.76 10^6/uL (4.0-5.20); Red Cell Distribution Width 13.3 % (11.8-14.3); White Blood Cell 9.8 10^3/uL (4.4-10.8)
[2023-06-09 09:37] LABS: Albumin 2.8 g/dL (3.4-5.0); Calcium 8.4 mg/dL (8.5-10.1)
[2023-06-09] MEDS: LOSARTAN POTASSIUM 25 MG TAB PO SCH (09:39)
[2023-06-09] MEDS: METOPROLOL SUCCINATE XL 50 MG TAB PO SCH (09:40)
[2023-06-09] MEDS: ENOXAPARIN SOD 80 MG/0.8ML SYRINGE SC SCH ×2 (09:40→21:22)
[2023-06-09 09:41] LABS: Bilirubin, Total 0.5 mg/dL (0.2-1.0); Total Protein 6.1 g/dL (6.4-8.2)
[2023-06-09] MEDS: SODIUM CHLORIDE 0.9% 1,000 ML IV SCH ×2 (09:48→23:55)
[2023-06-09 13:00] VITALS: BP_SYST 149; BP_SYST 157; BP_DIAS 62; BP_DIAS 69; PULSE 61; RESP 18; TEMP 97.8; O2SAT 97
[2023-06-09] MEDS ORDERED: MAGN400T18 PO (15:12)
[2023-06-09] MEDS ORDERED: METH-1182 PO (15:12)
[2023-06-09] MEDS ORDERED: OXYB5TAB24 PO (15:15)
[2023-06-09] MEDS ORDERED: APIX5TAB4 PO (15:17)
[2023-06-09] MEDS ORDERED: GABA-1250 PO (15:22)
[2023-06-09] MEDS ORDERED: ATOR20TA PO (15:22)
[2023-06-09 16:52] VITALS: BP 131/64; PULSE 73; RESP 16; TEMP 98.1; O2SAT 96
[2023-06-09 20:00] VITALS: PULSE 75
[2023-06-09] MEDS ORDERED: LORazepam 2MG/ML-1ML VIAL IV PRN (21:15)
[2023-06-09] MEDS: GABAPENTIN 300 MG CAP PO SCH (21:21)
[2023-06-09] MEDS: ATORVASTATIN 20 MG TAB PO SCH (21:22)
[2023-06-09 22:59] LABS: % Iron Saturation 15.8 % (15-50)
[2023-06-09 23:11] LABS: Free T4 (Free Thyroxine) 0.87 ng/dL (0.89-1.76)
[2023-06-09 23:12] LABS: Folate (Folic Acid) 16.55 ng/mL (5.38-24)
[2023-06-10] VITALS (7 sets, daily range): BP systolic 118–167; BP diastolic 55–73; PULSE 52–81; RESP 16–18; TEMP 97.9–98.3; O2SAT 96–98
[2023-06-10] MEDS: ONDANSETRON HCL 4 MG/2 ML VIAL IV PRN ×4 (03:10→23:03)
[2023-06-10] MEDS: HYDROmorphone HCL 2 MG/ML VL/or syr IV PRN ×4 (03:11→23:03)
[2023-06-10] MEDS: LEVOTHYROXINE SODIUM 88 MCG TAB PO SCH (06:28)
[2023-06-10] MEDS: DOXYCYCLINE 100MG/250ML 250 ML IV SCH ×2 (09:22→21:04)
[2023-06-10] MEDS: ENOXAPARIN SOD 80 MG/0.8ML SYRINGE SC SCH ×2 (10:15→23:12)
[2023-06-10] MEDS: METOPROLOL SUCCINATE XL 50 MG TAB PO SCH (16:23)
[2023-06-10] MEDS: LOSARTAN POTASSIUM 25 MG TAB PO SCH (16:24)
[2023-06-10] MEDS: SODIUM CHLORIDE 0.9% 1,000 ML IV SCH (16:34)
[2023-06-10] MEDS: LACTULOSE 20Gm/30ML SOLN PO PRN (21:00)
[2023-06-10] MEDS: ATORVASTATIN 20 MG TAB PO SCH (22:59)
[2023-06-10] MEDS: GABAPENTIN 300 MG CAP PO SCH (22:59)
[2023-06-11] VITALS (8 sets, daily range): BP systolic 126–183; BP diastolic 54–101; PULSE 57–90; RESP 16–18; TEMP 97.8–98.5; O2SAT 92–98
[2023-06-11] MEDS: ONDANSETRON HCL 4 MG/2 ML VIAL IV PRN ×2 (05:26→09:44)
[2023-06-11] MEDS: HYDROmorphone HCL 2 MG/ML VL/or syr IV PRN ×2 (05:28→09:44)
[2023-06-11 05:48] LABS: Basophils # (auto) 0 10 ^3/uL (0-0.2); Basophils % (auto) 0.4 % (0.0-2.0); Eosinophils # (auto) 0.2 10 ^3/uL (0-0.8); Eosinophils % (auto) 1.9 % (0.0-7.0); Hematocrit 33.9 % (36.0-46.0); Hemoglobin 11.8 g/dL (12.2-16.2); Lymphocytes # (auto) 2.7 10 ^3/uL (0.4-5.4); Lymphocytes % (auto) 26.5 % (10.0-50.0); Mean Corpuscular Hemoglobin 30.2 pg (28.0-32.0); Mean Corpuscular Hgb Conc. 34.7 g/dL (32.0-36.0); Mean Corpuscular Volume 86.8 fL (80.0-100.0); Monocytes # (auto) 0.7 10 ^3/uL (0-1.3); Monocytes % (auto) 6.5 % (0.0-12.0); Neutrophils # (auto) 6.6 10 ^3/uL (1.6-8.6); Neutrophils % (auto) 64.7 % (37.0-80.0); Red Cell Distribution Width 13.2 % (11.8-14.3); White Blood Cell 10.2 10^3/uL (4.4-10.8)
[2023-06-11 06:07] LABS: Albumin 2.9 g/dL (3.4-5.0); Calcium 8.4 mg/dL (8.5-10.1); Potassium 3.4 mmol/L (3.5-5.1)
[2023-06-11 06:10] LABS: Bilirubin, Total 0.4 mg/dL (0.2-1.0); Total Protein 6.1 g/dL (6.4-8.2)
[2023-06-11] MEDS: SODIUM CHLORIDE 0.9% 1,000 ML IV SCH ×2 (06:46→15:55)
[2023-06-11] MEDS: LEVOTHYROXINE SODIUM 88 MCG TAB PO SCH (06:48)
[2023-06-11] MEDS: DOXYCYCLINE 100MG/250ML 250 ML IV SCH (09:45)
[2023-06-11] MEDS: ENOXAPARIN SOD 80 MG/0.8ML SYRINGE SC SCH (09:46)
[2023-06-11] MEDS: LOSARTAN POTASSIUM 25 MG TAB PO SCH (09:47)
[2023-06-11] MEDS: METOPROLOL SUCCINATE XL 50 MG TAB PO SCH (09:47)
[2023-06-11] MEDS ORDERED: POTASSIUM CHL 20 Meq TABLET PO ONE (13:30)
[2023-06-11] MEDS: HYDROmorphone HCL 2 MG TAB PO PRN ×2 (15:57→21:16)
[2023-06-11] MEDS: MILK OF MAGNESIA 30ML SUSP PO PRN (17:38)
[2023-06-11] MEDS: ATORVASTATIN 20 MG TAB PO SCH (21:16)
[2023-06-11] MEDS: GABAPENTIN 300 MG CAP PO SCH (21:16)
[2023-06-11] MEDS: APIXABAN 5 MG TAB PO SCH (21:16)
[2023-06-11] MEDS ORDERED: APIXABAN 5 MG TAB PO SCH (22:00)
[2023-06-12] VITALS (8 sets, daily range): BP systolic 120–178; BP diastolic 57–86; PULSE 69–94; RESP 16–20; TEMP 98–98.3; O2SAT 93–96
[2023-06-12] MEDS: HYDROmorphone HCL 2 MG TAB PO PRN ×4 (05:09→23:00)
[2023-06-12] MEDS: SODIUM CHLORIDE 0.9% 1,000 ML IV SCH ×2 (05:15→18:36)
[2023-06-12] MEDS: LEVOTHYROXINE SODIUM 88 MCG TAB PO SCH (06:35)
[2023-06-12] MEDS: APIXABAN 5 MG TAB PO SCH ×2 (09:43→21:02)
[2023-06-12] MEDS: METOPROLOL SUCCINATE XL 50 MG TAB PO SCH (09:44)
[2023-06-12] MEDS: LOSARTAN POTASSIUM 25 MG TAB PO SCH (09:45)
[2023-06-12] MEDS ORDERED: MAALOX PLUS or MAALOX 30 ML PO PRN (20:00)
[2023-06-12] MEDS: ATORVASTATIN 20 MG TAB PO SCH (21:03)
[2023-06-12] MEDS: GABAPENTIN 300 MG CAP PO SCH (21:03)
[2023-06-13] VITALS (7 sets, daily range): BP systolic 137–158; BP diastolic 63–70; PULSE 56–91; RESP 17–20; TEMP 97.1–98.4; O2SAT 95–98
[2023-06-13] MEDS: HYDROmorphone HCL 2 MG TAB PO PRN ×3 (04:50→17:06)
[2023-06-13] MEDS: LEVOTHYROXINE SODIUM 88 MCG TAB PO SCH (06:20)
[2023-06-13] MEDS: SODIUM CHLORIDE 0.9% 1,000 ML IV SCH ×2 (07:55→21:13)
[2023-06-13] MEDS: METOPROLOL SUCCINATE XL 50 MG TAB PO SCH (08:44)
[2023-06-13] MEDS: APIXABAN 5 MG TAB PO SCH ×2 (08:44→21:07)
[2023-06-13] MEDS: LOSARTAN POTASSIUM 25 MG TAB PO SCH (08:45)
[2023-06-13] MEDS ORDERED: OMNIPAQUE 12mg/ml 500ml ORAL SOLUTION PO ONE (10:25)
[2023-06-13] MEDS: MAALOX PLUS or MAALOX 30 ML PO SCH ×3 (13:59→21:06)
[2023-06-13] MEDS: LACTULOSE 20Gm/30ML SOLN PO PRN (17:12)
[2023-06-13] MEDS: ATORVASTATIN 20 MG TAB PO SCH (21:07)
[2023-06-13] MEDS: GABAPENTIN 300 MG CAP PO SCH (21:07)
[2023-06-14] VITALS (7 sets, daily range): BP systolic 110–155; BP diastolic 44–84; PULSE 50–78; RESP 15–18; TEMP 97.6–98.7; O2SAT 94–97
[2023-06-14] MEDS: HYDROmorphone HCL 2 MG TAB PO PRN ×4 (00:55→23:21)
[2023-06-14] MEDS: MAALOX PLUS or MAALOX 30 ML PO SCH ×3 (06:00→21:07)
[2023-06-14] MEDS: LEVOTHYROXINE SODIUM 88 MCG TAB PO SCH (06:06)
[2023-06-14] MEDS: LOSARTAN POTASSIUM 25 MG TAB PO SCH (09:20)
[2023-06-14] MEDS: APIXABAN 5 MG TAB PO SCH ×2 (09:20→21:06)
[2023-06-14] MEDS: LACTULOSE 20Gm/30ML SOLN PO PRN (09:21)
[2023-06-14] MEDS: METOPROLOL SUCCINATE XL 50 MG TAB PO SCH (09:21)
[2023-06-14] MEDS: SODIUM CHLORIDE 0.9% 1,000 ML IV SCH ×2 (09:31→16:14)
[2023-06-14] MEDS: DOCUSATE SOD 100 MG CAP PO SCH ×2 (11:56→21:07)
[2023-06-14 12:02] LABS: Basophils # (auto) 0 10 ^3/uL (0-0.2); Basophils % (auto) 0.4 % (0.0-2.0); Eosinophils # (auto) 0 10 ^3/uL (0-0.8); Eosinophils % (auto) 0.4 % (0.0-7.0); Hematocrit 36.7 % (36.0-46.0); Hemoglobin 12.6 g/dL (12.2-16.2); Lymphocytes # (auto) 2.2 10 ^3/uL (0.4-5.4); Lymphocytes % (auto) 20.6 % (10.0-50.0); Mean Corpuscular Hgb Conc. 34.3 g/dL (32.0-36.0); Mean Corpuscular Volume 87.5 fL (80.0-100.0); Monocytes # (auto) 0.5 10 ^3/uL (0-1.3); Monocytes % (auto) 5.1 % (0.0-12.0); Neutrophils # (auto) 7.9 10 ^3/uL (1.6-8.6); Neutrophils % (auto) 73.5 % (37.0-80.0); Nucleated Red Blood Cells % 0.1 %; Red Cell Distribution Width 13.3 % (11.8-14.3); White Blood Cell 10.8 10^3/uL (4.4-10.8)
[2023-06-14 12:44] LABS: BUN/Creatinine Ratio 17.5 (10.0-20.0); Calcium 8.9 mg/dL (8.5-10.1); Magnesium 2.6 mg/dL (1.6-2.6); Potassium 4.4 mmol/L (3.5-5.1)
[2023-06-14] MEDS ORDERED: POLYETHYLENE GLYCOL 17 GM PWDR PO ONE (12:45)
[2023-06-14] MEDS: ONDANSETRON HCL 4 MG/2 ML VIAL IV PRN (13:34)
[2023-06-14] MEDS ORDERED: FLEET ENEMA(ADULT) 135 ML PR ONE (16:45)
[2023-06-14] MEDS: GABAPENTIN 300 MG CAP PO SCH (21:06)
[2023-06-14] MEDS: ATORVASTATIN 20 MG TAB PO SCH (21:07)
[2023-06-15 05:00] VITALS: BP 141/62; PULSE 61; RESP 16; TEMP 97.6; O2SAT 98
[2023-06-15] MEDS: MAALOX PLUS or MAALOX 30 ML PO SCH ×3 (06:14→21:19)
[2023-06-15] MEDS: LEVOTHYROXINE SODIUM 88 MCG TAB PO SCH (06:14)
[2023-06-15] MEDS: HYDROmorphone HCL 2 MG TAB PO PRN ×3 (06:14→18:17)
[2023-06-15 08:00] VITALS: BP 145/65; PULSE 62; PULSE 77; RESP 18; TEMP 97.7; O2SAT 96
[2023-06-15] MEDS: DOCUSATE SOD 100 MG CAP PO SCH ×2 (10:00→21:18)
[2023-06-15] MEDS: APIXABAN 5 MG TAB PO SCH ×2 (10:03→21:18)
[2023-06-15] MEDS: LOSARTAN POTASSIUM 25 MG TAB PO SCH (10:03)
[2023-06-15] MEDS: METOPROLOL SUCCINATE XL 50 MG TAB PO SCH (10:04)
[2023-06-15] MEDS: PANTOPRAZOLE 40 MG TAB PO SCH (10:04)
[2023-06-15 12:00] VITALS: BP 160/68; PULSE 76; RESP 20; TEMP 98.4; O2SAT 94
[2023-06-15] MEDS: SODIUM CHLORIDE 0.9% 1,000 ML IV SCH (13:15)
[2023-06-15 16:00] VITALS: BP 131/71; PULSE 85; RESP 22; TEMP 98.4; O2SAT 97
[2023-06-15] MEDS: LACTULOSE 20Gm/30ML SOLN PO SCH ×2 (18:16→23:43)
[2023-06-15 20:00] VITALS: PULSE 78
[2023-06-15 21:00] VITALS: BP_SYST 110; BP_SYST 131; BP_DIAS 160; BP_DIAS 63; BP_DIAS 64; PULSE 117; PULSE 72; RESP 16; RESP 20; TEMP 97.8; TEMP 98.2; O2SAT 93; O2SAT 96
[2023-06-15] MEDS: GABAPENTIN 300 MG CAP PO SCH (21:18)
[2023-06-15] MEDS: ATORVASTATIN 20 MG TAB PO SCH (21:18)
[2023-06-16] MEDS: SODIUM CHLORIDE 0.9% 1,000 ML IV SCH ×2 (02:35→15:55)
[2023-06-16 05:00] VITALS: BP 114/66; PULSE 64; RESP 14; TEMP 98.4; O2SAT 97
[2023-06-16] MEDS: MAALOX PLUS or MAALOX 30 ML PO SCH ×2 (06:00→16:17)
[2023-06-16] MEDS: LEVOTHYROXINE SODIUM 88 MCG TAB PO SCH (06:06)
[2023-06-16] MEDS: LACTULOSE 20Gm/30ML SOLN PO SCH ×2 (06:06→12:33)
[2023-06-16 08:12] VITALS: O2SAT 95
[2023-06-16 08:26] VITALS: PULSE 70
[2023-06-16 09:00] VITALS: BP 127/69; PULSE 69; RESP 16; TEMP 97.6; O2SAT 97
[2023-06-16] MEDS: MILK OF MAGNESIA 30ML SUSP PO PRN (09:16)
[2023-06-16] MEDS: HYDROmorphone HCL 2 MG TAB PO PRN (09:16)
[2023-06-16] MEDS: LOSARTAN POTASSIUM 25 MG TAB PO SCH (09:19)
[2023-06-16] MEDS: DOCUSATE SOD 100 MG CAP PO SCH (09:19)
[2023-06-16] MEDS: PANTOPRAZOLE 40 MG TAB PO SCH (09:19)
[2023-06-16] MEDS: APIXABAN 5 MG TAB PO SCH (09:21)
[2023-06-16] MEDS: METOPROLOL SUCCINATE XL 50 MG TAB PO SCH (09:21)
[2023-06-16] MEDS ORDERED: POLYETHYLENE GLYCOL 17 GM PWDR PO SCH (10:00)
[2023-06-16 13:00] VITALS: BP 143/79; PULSE 91; RESP 16; TEMP 98.3; O2SAT 94
[2023-06-16 15:27] VITALS: BP 143/79; PULSE 91; RESP 16; TEMP 36.8; O2SAT 94
== END 2023-06-16 16:15 | disposition home or self-care (01) | DRG 551 ==
LOC: ER 14:42 → EDBD 14:42 → TELE 22:01 → TELE-CENTR 06-07 15:43
PROVIDERS: ADMIT Internal Medicine; ATTEND Internal Medicine
DX: S32.019A Unspecified fracture of first lumbar vertebra, initial encounter for closed fracture (principal); J15.6 Pneumonia due to other Gram-negative bacteria; J15.9 Unspecified bacterial pneumonia; E87.1 Hypo-osmolality and hyponatremia; R55 Syncope and collapse; F32.A Depression, unspecified; W18.11XA Fall from or off toilet without subsequent striking against object, initial encounter; I48.0 Paroxysmal atrial fibrillation; K56.41 Fecal impaction; I10 Essential (primary) hypertension; E78.5 Hyperlipidemia, unspecified; E03.9 Hypothyroidism, unspecified; I49.3 Ventricular premature depolarization; E11.42 Type 2 diabetes mellitus with diabetic polyneuropathy; F17.200 Nicotine dependence, unspecified, uncomplicated; G25.81 Restless legs syndrome; G47.00 Insomnia, unspecified; H54.62 Unqualified visual loss, left eye, normal vision right eye; Z79.01 Long term (current) use of anticoagulants; Z79.899 Other long term (current) drug therapy; Z82.49 Family history of ischemic heart disease and other diseases of the circulatory system; Z83.3 Family history of diabetes mellitus; Z87.442 Personal history of urinary calculi; Z88.2 Allergy status to sulfonamides; Z88.6 Allergy status to analgesic agent; Z88.8 Allergy status to other drugs, medicaments and biological substances; Y93.89 Activity, other specified; Y92.89 Other specified places as the place of occurrence of the external cause; Y99.8 Other external cause status
CPT/HCPCS: 36415; 70450; 71045; 72131; 74018; 74176; 80048; 80053; 80061; 82607; 82728; 82746; 83540; 83550; 83690; 83735; 83880; 84439; 84443; 84484; 85025; 87040; 93005; 93306; 95819; 97110; 97116; 97163; 97530; G0378; J2405; J3490